=== PATIENT | female | born 1950 | race Caucasian/White ===

== ENCOUNTER 2016-09-04 21:32 | Emergency (ER) | payer MEDICARE, OTHER ==
[~2016-09-04] VITALS: Ht 162.5 cm; Wt 77.1 kg
[2016-09-04 21:54] LABS: BASO # 0.1 10*3/uL (0.0-0.1); BASO % 0.9 % (0.0-1.0); EOS # 0.1 10*3/uL (0.0-0.4); EOS % 1.2 % (1.0-4.0); HEMATOCRIT 32.3 % (37.0-47.0); HEMOGLOBIN 10.6 g/dl (12.0-16.0); LYMPH # 2.2 10*3/uL (1.3-4.4); LYMPH % 32.8 % (27.0-41.0); MEAN CELL VOLUME 104.5 fl (81.0-99.0); MEAN CORPUSCULAR HGB 34.3 pg (27.0-31.0); MEAN CORPUSCULAR HGB CONC 32.8 g/dl (33.0-37.0); MEAN PLATELET VOLUME 11.3 fl (9.6-12.3); MONO # 0.6 10*3/uL (0.1-1.0); MONO % 8.2 % (3.0-9.0); NEUT # 3.8 10*3/uL (2.3-7.9); NEUT % 56.6 % (47.0-73.0); PLATELET COUNT AUTOMATED 209 10*3/uL (130-400); RED BLOOD COUNT 3.09 10*6/uL (4.10-5.10); RED CELL DISTRI WIDTH 13.3 % (0-14.5); WHITE BLOOD COUNT 6.7 10*3/uL (4.8-10.8)
[2016-09-04 22:04] LABS: INTERNATIONAL NORM RATIO 1.4 (2.0-3.5); PROTHROMBIN TIME 15.7 SECONDS (9.0-12.4)
[2016-09-04 22:11] LABS: ALBUMIN 3.4 gm/dl (3.1-4.5); BILIRUBIN, TOTAL 0.6 mg/dl (0.2-1.0); MAGNESIUM 1.3 mg/dL (1.5-2.1); POTASSIUM 4.2 mmol/L (3.5-5.1); TOTAL PROTEIN 6.9 gm/dL (6.4-8.2)
[2016-09-04 22:16] LABS: TROPONIN I 0.078 ng/ml (<0.045)
[2016-09-04] MEDS ORDERED: METFORMIN500 MG PO (22:58)
[2016-09-04] MEDS ORDERED: COREG3.125 MG PO (22:58)
[2016-09-04] MEDS ORDERED: ASPIRIN CHEWABL81 MG PO (22:58)
[2016-09-04] MEDS ORDERED: ELIQUIS5 M1 PO (22:58)
[2016-09-04] MEDS ORDERED: HYDR25T PO (22:59)
[2016-09-04] MEDS ORDERED: SIMVASTATIN20 MG PO (22:59)
[2016-09-04] MEDS ORDERED: ATIVAN0.5 MG PO (22:59)
[2016-09-04] MEDS ORDERED: PROTONIX40 MG PO (22:59)
[2016-09-04] MEDS ORDERED: VENLAFAXINE150 MG PO (23:00)
== END 2016-09-05 05:06 | disposition short-term general hospital (02) ==
LOC: ED 21:32
PROVIDERS: Emergency Medicine Emergency Medical Services
DX: R07.89 Other chest pain (principal); I25.2 Old myocardial infarction; Z79.82 Long term (current) use of aspirin; Z79.899 Other long term (current) drug therapy

== ENCOUNTER 2016-10-13 18:07 | Emergency (ER) | payer MEDICARE, OTHER ==
[~2016-10-13] VITALS: Ht 167.6 cm; Wt 65.8 kg
[~2016-10-13 18:07] MED LIST: ASPIRIN CHEWABL81 MG PO; ATIVAN0.5 MG PO; COREG3.125 MG PO; ELIQUIS5 M1 PO; HYDR25T PO; METFORMIN500 MG PO; PROTONIX40 MG PO; SIMVASTATIN20 MG PO; VENLAFAXINE150 MG PO
[2016-10-13 19:09] LABS: BASO % 0.4 % (0.0-1.0); EOS # 0.1 10*3/uL (0.0-0.4); HEMATOCRIT 31.5 % (37.0-47.0); HEMOGLOBIN 10.4 g/dl (12.0-16.0); LYMPH # 1.5 10*3/uL (1.3-4.4); LYMPH % 22.1 % (27.0-41.0); MEAN CELL VOLUME 100.6 fl (81.0-99.0); MEAN CORPUSCULAR HGB 33.2 pg (27.0-31.0); MEAN PLATELET VOLUME 11.7 fl (9.6-12.3); MONO # 0.6 10*3/uL (0.1-1.0); MONO % 8.2 % (3.0-9.0); NEUT # 4.6 10*3/uL (2.3-7.9); PLATELET COUNT AUTOMATED 203 10*3/uL (130-400); RED BLOOD COUNT 3.13 10*6/uL (4.10-5.10); WHITE BLOOD COUNT 6.8 10*3/uL (4.8-10.8)
[2016-10-13 19:24] LABS: ALBUMIN 3.3 gm/dl (3.1-4.5); BILIRUBIN, TOTAL 0.5 mg/dl (0.2-1.0); POTASSIUM 3.2 mmol/L (3.5-5.1)
[2016-10-13] MEDS ORDERED: NORCO 5-325 TA1 EACH PO (19:46)
[2016-10-13] MEDS ORDERED: CLINDAMYCIN HC300 MG PO (19:46)
== END 2016-10-13 21:24 | disposition home or self-care (01) ==
LOC: ED 18:07
PROVIDERS: Physician Assistant
DX: L03.115 Cellulitis of right lower limb (principal); Z79.82 Long term (current) use of aspirin